=== PATIENT | male | born 1965 | race Caucasian/White ===

== ENCOUNTER → 2017-12-05 | Day surgery (SDC) | payer BC ==
[2017-11-27 12:27] LABS: BASOPHILS % 0.6 % (0.0-1.0); EOSINOPHILS # (AUTO) 0.2 (0.0-0.4); EOSINOPHILS % 2.3 % (0.0-6.0); HEMATOCRIT 46.7 % (38.2-49.6); HEMOGLOBIN 15.5 g/dL (14.0-18.0); LYMPHOCYTES # (AUTO) 2.4 (1.0-3.2); LYMPHOCYTES % 34.7 % (18.0-39.1); MEAN CORPUSCULAR HEMOGLOBIN 28.7 pg (28-32); MEAN CORPUSCULAR HGB CONC 33.2 g/dL (31-35); MEAN CORPUSCULAR VOLUME 86.5 fL (81-99); MONOCYTES # (AUTO) 0.6 (0.2-0.8); MONOCYTES % 8.1 % (4.4-11.3); NEUTROPHILS # (AUTO) 3.7 (2.1-6.9); NEUTROPHILS % 53.9 % (38.7-80.0); PLATELET COUNT 220 x10e3/uL (140-360); RED CELL DISTRIBUTION WIDTH 12.7 % (11.7-14.4)
[2017-11-27 12:59] LABS: ANION GAP 11.5 mmol/L (8-16); BLOOD UREA NITROGEN 24 mg/dL (7-26); BUN/CREATININE RATIO 24 (6-25); CALCIUM 9.1 mg/dL (8.4-10.2); CARBON DIOXIDE 24 mmol/L (22-29); CHLORIDE 109 mmol/L (98-107); CREATININE, SERUM 0.99 mg/dL (0.72-1.25); EST GLOMERULAR FILTRATION RATE > 60 ML/MIN (60-); GLUCOSE 114 mg/dL (74-118); POTASSIUM 4.5 mmol/L (3.5-5.1); SODIUM 140 mmol/L (136-145)
[~2017-12-05] MED LIST: BACITRACIN ZINC 15 GM OINT ONE; BUPIVACAINE HCL 0.5% INJ 30 ML VIAL INJ ONE; CEFAZOLIN SOD 1 GM VIAL ONE; CYMBALTA20 MG PO; DEXAMETHASONE SOD PHOS INJ 4 MG/ML VIAL ONE; DIOVAN80 MG PO; FENTANYL CITRATE/PF 100MCG/2 ML INJ ONE; GLIMEPIRIDE2 MG PO; KETOROLAC TROMETHAMINE 30 MG/ML VIAL ONE; LIDOCAINE HCL 2% LOCAL 20 ML VIAL ONE; LIDOCAINE HCL 2% LOCAL INJ 5 ML SDV VIAL INJ ONE; MELOXICAM7.5 MG PO; METFORMIN HCL500 M1; METFORMIN HCL500 M2 PO; METFORMIN HCL500 MG PO; METOPROLOL TART25 MG PO; MIDAZOLAM HCL 2 MG/2 ML VIAL ONE; ONDANSETRON HCL INJ 2 MG/ML VIAL ONE; PROPOFOL IV EMULSION 10 MG/ML 20 ML VIAL ONE; QUETIAPINE FUMA25 MG PO; ROPIVACAINE 0.5% 5 MG/ML 30 ML SDV ONE; SEVOFLURANE INHAL SOLN 250 ML PEN BTL ONE; TRULICITY IJ
--- NOTE | 2017-12-05 12:48 | Operative Report ---
DATE OF PROCEDURE: December 05, 2017 PREOPERATIVE DIAGNOSES 1. Left peroneal brevis tendon tear. 2. Left peroneal longus tendon tear. POSTOPERATIVE DIAGNOSES 1. Left peroneal brevis tendon tear. 2. Left peroneal longus tendon tear. PROCEDURES 1. Repair of peroneal brevis tendon using a cadaveric graft. 2. Repair of peroneal longus tendon, left. 3. Use of human allograft to augment the repair. 4. Posterior splint. PATHOLOGY: None. ANESTHESIA: General anesthetic with block given by anesthesia preop. COMPLICATIONS: None. CONDITION: Stable. MATERIALS 1. A semitendinous graft, lot number [id number], expiration date 08/16/2022. 2. AlloWrap wet, 4 x 8 cm, reference number [id number], lot number [id number], expiration date 02/06/2019. PROCEDURE IN DETAIL: Under mild sedation, the patient was brought to the operating room and placed on the operating table in the supine position. Following IV sedation, anesthesia was obtained with a general anesthetic. At this point, the leg was positioned in a semilateral decubitus with a matos bag in order to access the foot laterally. The foot was scrubbed, prepped and draped in the usual aseptic manner. Then the pneumatic thigh tourniquet was inflated to 350 mmHg, and the leg was lowered to the table. Repair of peroneal brevis and longus tendon: Attention was then directed to the lateral aspect of the left foot where a curvilinear incision was made from the tip of the fibula extending past the retromalleolar about 3 cm past the ankle joint. The incision was deepened via sharp and blunt dissection, taking care to retract or cauterize neurovascular structures as necessary. The incision was deepened down to the level of the peroneal tendon. At this point, the peroneal sheath was opened. The peroneal longus was examined. It was noted to be full of mucoid. All of the nonviable tissue was removed. The proximal aspect was intact; but right around the retromalleolar down into the foot, all nonviable tissue was removed. The tendon was intumulated with FiberWire and was wrapped in an allograft wrap. At this point, the peroneus brevis was then traced down into the foot. It was torn right below the level of the malleolus. At this point, the stump was noted. All nonviable tissue was removed. The piece of tendon was intumulated and the piece of semitendinous graft. A whip stitch was performed in order to secure the tendon and attach it to the graft. The remaining proximal end of the tendon was reattached back to the viable part of the peroneal longus tendon. The area was then flushed with copious amounts of normal sterile saline solution. The area was then closed in layers, closing first the peroneal sheath, then the retinaculum, then the subcutaneous tissue. Then the skin was closed with rodriguez. A clean dressing was applied consisting of Adaptic ointment, 4 x 4's, Kerlix, and Webril. A posterior splint was applied and was secured utilizing an Agustín bandage. The tourniquet was deflated. There was noted to be hyperemic response to all the digits. The patient tolerated the procedure and anesthesia well without complications. He was transported to the recovery room with vital signs stable and vascular status intact to both feet. The patient will be discharged home when he meets criteria. He was given instructions to be strictly nonweightbearing, to ice and elevate the foot while at rest. Follow up with me in the office and to call the office if any questions, concerns or any problems arise. Job#: [id number]
== END | disposition home or self-care (01) ==
LOC: OR 06:24
PROVIDERS: ATTEND Podiatrist Foot & Ankle Surgery
DX: S86.322A Laceration of muscle(s) and tendon(s) of peroneal muscle group at lower leg level, left leg, initial encounter (principal); E11.9 Type 2 diabetes mellitus without complications; I10 Essential (primary) hypertension; G47.33 Obstructive sleep apnea (adult) (pediatric); X58.XXXA Exposure to other specified factors, initial encounter; Z01.812 Encounter for preprocedural laboratory examination; Z87.891 Personal history of nicotine dependence
CPT/HCPCS: 27658; 27899; 36415 ×2; 80048; 82948; 85025; J0690; J1100; J1885; J2001 ×2; J2250; J2405; J2795